=== PATIENT | female | born 1970 | race American Indian/Alaskan Native ===

== ENCOUNTER 2017-10-22 23:03 | Emergency (ER) | payer OTHER ==
[2017-10-22 23:30] VITALS: BP 110/64
[2017-10-23] MEDS ORDERED: TYLENOL PO ONE (00:25)
[2017-10-23] MEDS ORDERED: TYLENOL ONE (00:29)
--- NOTE | 2017-10-23 01:31 | XRay Report ---
FINAL REPORT PROCEDURE: XR CHEST ROUTINE 2V TECHNIQUE: PA and lateral chest radiographs were obtained. CPT 22342 HISTORY: shortness of breath COMPARISON: No prior studies are available for comparison. FINDINGS: Heart: Normal. Mediastinum/Vessels: Normal. Lungs/Pleural space: Normal. Bony thorax: No acute osseous abnormality. Other: IMPRESSION: Normal examination.
--- NOTE | 2017-10-23 07:15 | Emergency Department Report ---
HPI - General Chief Complaint: Upper Respiratory Infection Time Seen by Provider: 10/23/17 06:00 ED Past Medical Hx - Past Medical History Previous Medical History?: No - Surgical History Past Surgical History?: No - Social History Smoking Status: Never Smoker Substance Use Type: None ED Review of Systems ROS: Stated complaint: FLU SX Other details as noted in HPI Physical Exam - Physical Exam Vital Signs: Vital Signs 10/22/17 10/23/17 10/23/17 23:20 00:35 05:03 Temperature 101.6 F H 98.5 F Pulse Rate 96 H Respiratory 18 20 Rate Blood Pressure 110/64 O2 Sat by Pulse 97 Oximetry ED Course Vital Signs 10/22/17 10/23/17 10/23/17 23:20 00:35 05:03 Temperature 101.6 F H 98.5 F Pulse Rate 96 H Respiratory 18 20 Rate Blood Pressure 110/64 O2 Sat by Pulse 97 Oximetry Critical care attestation.: If time is entered above; I have spent that time in minutes in the direct care of this critically ill patient, excluding procedure time. ED Disposition Condition: Stable Referrals: AMBER PIERSON MD [Primary Care Provider] - 3-5 Days
[2017-10-23] MEDS ORDERED: DELTASONE PO ONE (07:39)
[2017-10-23] MEDS ORDERED: ROBITUSSIN PO ONE (07:39)
--- NOTE | 2017-10-23 07:42 | Emergency Department Report ---
Minor Respiratory - HPI Chief Complaint: Upper Respiratory Infection Stated Complaint: FLU SX Time Seen by Provider: 10/23/17 06:00 Duration: Today Severity: mild Minor Respiratory: Yes Sore Throat, Yes Able to Tolerate Fluids, Yes Cough, Yes Fever, No Rhinorrhea, No Ear Pain, No Sick Contacts, No Hemoptysis, No Chest Pain, No Shortness of Breath Other History: This is a 47-year-old female who presents to ED complaining that feeling well, cough and fever 2 days. Patient states symptoms started 2 days ago and has gotten worse in the past day. Patient complains of generalized body aches, intermittent coughing dry, nonproductive. Patient states she does not recall being around in his contacts or has not traveled outside the country in the past month. Patient states she is able to drink and eat but sometimes has a loss of appetite. She denies vomiting, diarrhea, chest pain, shortness of breath, dizziness or blurry vision. ED Review of Systems ROS: Stated complaint: FLU SX Other details as noted in HPI Constitutional: fever, malaise. denies: chills Eyes: denies: eye pain, eye discharge, vision change ENT: denies: ear pain, throat pain, dental pain, congestion Respiratory: cough. denies: shortness of breath, wheezing Cardiovascular: denies: chest pain, palpitations Endocrine: no symptoms reported Gastrointestinal: denies: abdominal pain, nausea, diarrhea Genitourinary: denies: urgency, dysuria, discharge Musculoskeletal: denies: back pain, joint swelling, arthralgia Skin: denies: rash, lesions Neurological: denies: headache, weakness, paresthesias Psychiatric: denies: anxiety, depression Hematological/Lymphatic: denies: easy bleeding, easy bruising ED Past Medical Hx - Past Medical History Previous Medical History?: No - Surgical History Past Surgical History?: No - Social History Smoking Status: Never Smoker Substance Use Type: None - Medications Home Medications: Home Medications Medication Instructions Recorded Confirmed Last Taken Type D-Methorphan/PE/Acetaminophen 1 each PO Q6H #24 tablet 10/23/17 Unknown Rx [Tylenol Cold Max Day Caplet] Ibuprofen [Motrin] 600 mg PO Q8H PRN #30 tablet 10/23/17 Unknown Rx guaiFENesin [Robitussin] 200 mg PO TID #100 ml 10/23/17 Unknown Rx Minor Respiratory Exam - Exam General: Vital signs noted. No distress. Alert and acting appropriately. HEENT: Yes Moist Mucous Membranes, No Pharyngeal Erythema, No Pharyngeal Exudates, No Rhinorrhea, No Conjuctival Injection, No Frontal Tenderness, No Maxillary Tenderness Ear: Neither TM Bulge, Neither TM Erythema, Neither EAC Pain, Neither EAC Discharge Neck: Yes Supple, No Adenopathy Lungs: Yes Good Air Exchange, Yes Cough, No Wheezes, No Ronchi, No Stridor, No Labored Respirations, No Retractions, No Use of Accessory Muscles, No Other Abnormal Lung Sounds Heart: Yes Regular, No Murmur Abdomen: Yes Normal Bowel Sounds, No Tenderness, No Peritoneal Signs Skin: No Rash, No Edema Neurologic: Alert and oriented, no deficits. Musculoskeletal: Unremarkable. ED Course Vital Signs 10/22/17 10/23/17 10/23/17 23:20 00:35 05:03 Temperature 101.6 F H 98.5 F Pulse Rate 96 H Respiratory 18 20 Rate Blood Pressure 110/64 O2 Sat by Pulse 97 Oximetry ED Medical Decision Making - Lab Data Vital Signs 10/22/17 10/23/17 10/23/17 23:20 00:35 05:03 Temperature 101.6 F H 98.5 F Pulse Rate 96 H Respiratory 18 20 Rate Blood Pressure 110/64 O2 Sat by Pulse 97 Oximetry - Radiology Data Radiology results: report reviewed, image reviewed FINAL REPORT PROCEDURE: XR CHEST ROUTINE 2V TECHNIQUE: PA and lateral chest radiographs were obtained. CPT 38754 HISTORY: shortness of breath COMPARISON: No prior studies are available for comparison. FINDINGS: Heart: Normal. Mediastinum/Vessels: Normal. Lungs/Pleural space: Normal. Bony thorax: No acute osseous abnormality. Other: IMPRESSION: Normal examination. Transcribed By: CO Dictated By: SONAM BETTS MD Electronically Authenticated By: SONAM BETTS MD Signed Date/Time: 10/22/172128 - Medical Decision Making 47-year-old female presents with flulike symptoms. Fever resolved,no fever during the ED stay. Rapid influenza A and B test negative chest x-rays shows no acute cardiopulmonary process. I discussed this results with the patient. Patient received Tylenol, prednisone, Robitussin during her ED stay Discussed with patient symptomatic relief with [id number] medications. Discussed continue Tylenol or Motrin as needed for fever and pain. Discussed increase fluids and diet intake. Discussed rest much needed. Discussed daily vitamin C for immune booster. Discussed follow-up with PCP in 3-5 days. Patient verbally states she understands and will comply the following instructions and follow-up Vital signs stable. Patient is in no acute distress Critical care attestation.: If time is entered above; I have spent that time in minutes in the direct care of this critically ill patient, excluding procedure time. ED Disposition Clinical Impression: Viral syndrome URI (upper respiratory infection) Qualifiers: URI type: unspecified URI Qualified Code(s): J06.9 - Acute upper respiratory infection, unspecified Disposition: TO HOME OR SELFCARE Is pt being admited?: No Does the pt Need Aspirin: No Condition: Stable Instructions: Viral Syndrome (ED), Upper Respiratory Infection (ED) Additional Instructions: Make sure to follow up with the primary care physician as discussed. Take all your medications as you've been prescribed. If you have any worsening symptoms or develop new symptoms please return to ED immediately. Prescriptions: D-Methorphan/PE/Acetaminophen [Tylenol Cold Max Day Caplet] 1 each PO Q6H #24 tablet guaiFENesin [Robitussin] 200 mg PO TID #100 ml Ibuprofen [Motrin] 600 mg PO Q8H PRN #30 tablet PRN Reason: Pain Referrals: AMBER PIERSON MD [Primary Care Provider] - 3-5 Days [facility] [Outside] - [facility] - 3[facility]5 Days [facility] [Outside] - 3-5 Days Forms: Work/School Release Form(ED) Time of Disposition: 07:43
== END 2017-10-23 07:50 | disposition home or self-care (01) ==
LOC: ED 23:03
DX: B34.9 Viral infection, unspecified (principal); J06.9 Acute upper respiratory infection, unspecified
CPT/HCPCS: 71046; 87400; 99283; J7512